=== PATIENT | male | born 2000 | race Caucasian/White ===

== ENCOUNTER 2020-07-05 08:23 | Emergency (ER) | payer OTHER ==
[~2020-07-05] VITALS: Ht 172.7 cm; Wt 95.2 kg
--- NOTE | 2020-07-05 09:06 | REPVR ---
PROCEDURE INFORMATION: Exam: US Scrotum Exam date and time: 07/05/2020 8:57 AM Age: 19 years old Clinical indication: Scrotum pain; Additional info: Pain/discoloration R scrotum TECHNIQUE: Imaging protocol: Real-time ultrasound of the scrotum and contents with color Doppler and image documentation. COMPARISON: No relevant prior studies available. FINDINGS: Right testicle: Normal in size and echotexture. No mass. No torsion. Normal vascular flow. Left testicle: Normal in size and echotexture. No mass. No torsion. Normal vascular flow. Epididymides: Examination reveals a couple of tiny anechoic simple cysts in the right epididymis measuring 5 and 3 mm in diameter. The left epididymis is normal in size and echotexture. Scrotum: Normal. No hydrocele or varicocele. IMPRESSION: Examination reveals a couple of tiny anechoic simple cysts in the right epididymis measuring 5 and 3 mm in diameter. Otherwise, unremarkable study. Electronically signed by: Dino Hartman On 07/05/2020 09:05:45 AM
[2020-07-05 10:34] LABS: BASO % 0.7 % (0.0-1.0); EOS % 0.9 % (0.0-3.0); HEMATOCRIT 41.5 % (42.0-52.0); HEMOGLOBIN 13.7 g/dl (13.5-17.5); LYMPH # 1.5 10^3/uL (1.5-5.0); LYMPH % 33.7 % (24.0-44.0); MEAN CORPUSCULAR VOLUME 90.8 fl (80.0-96.0); MONO # 0.4 10^3/uL (0.0-0.8); MONO % 9.1 % (0.0-5.0); NEUTROPHILS # 2.5 10^3/uL (1.5-8.5); NEUTROPHILS % 55.4 % (36.0-66.0); PLATELET COUNT, AUTOMATED 237 10^3/uL (150-450); RED BLOOD COUNT 4.57 10^6/uL (4.30-6.10); WHITE BLOOD COUNT 4.5 10^3/uL (4.0-10.0)
[2020-07-05 12:23] VITALS: BP 125/57
--- NOTE | 2020-07-06 13:42 | ED PDOC ---
Post-Departure Follow-Up scrotal us formal report faxed to dr lund and ft ismael mcbride for fu Alyssia Castillo MD Jul 06, 2020 13:42
== END 2020-07-05 12:30 | disposition home or self-care (01) ==
LOC: M ED 08:23
DX: N50.3 Cyst of epididymis (principal); F17.210 Nicotine dependence, cigarettes, uncomplicated